=== PATIENT | female | born 1975 | race Caucasian/White ===

== ENCOUNTER 2016-09-12 10:30 | Outpatient (RCR) | payer OTHER | END 2016-10-01 | disposition home or self-care (01) | LOC: PTY 10:30 | DX: M25.371 Other instability, right ankle (principal); M65.879 Other synovitis and tenosynovitis, unspecified ankle and foot; M76.70 Peroneal tendinitis, unspecified leg | CPT/HCPCS: 97110; 97140; 97162; G0283 ==